=== PATIENT | female | born 1950 | race Hispanic/Latino ===

== ENCOUNTER → 2018-10-14 | Outpatient (CLI) | payer MEDICARE ==
[~2018-10-14] MED LIST: ATENOLOL100 MG PO; CEFDINIR300 MG PO; COZAAR100 MG PO; ZOLOFT100 MG
--- NOTE | 2018-10-14 15:13 | Diagnostic Imaging Report ---
Frontal and lateral views of the chest. HISTORY: Pneumonia COMPARISON: None available. DISCUSSION: Lungs: The lungs are hyperinflated. No evidence of a consolidative pneumonia or pulmonary alveolar edema. Pleura: Trace bilateral pleural effusions versus pleural thickening. Heart and mediastinum: The cardiac silhouette is unremarkable. The central pulmonary arteries appear enlarged. Bones and soft tissues: Minimal multilevel degenerative disc changes. Metallic clips in the right upper quadrant of the abdomen are compatible with prior cholecystectomy. IMPRESSION: 1. Hyperinflated lungs, correlate for obstructive lung disease. 2. Prominent pulmonary arteries, suggest associated increased pulmonary artery pressure. 3. No consolidative pneumonia. Signed by: Dr. Harish Snow D.O., M.M.M. on 10/14/2018 3:09 PM
== END ==
LOC: RAD 13:24
PROVIDERS: ATTEND Family Medicine
DX: J18.9 Pneumonia, unspecified organism (principal)
CPT/HCPCS: 71046

== ENCOUNTER 2019-03-26 16:54 | Emergency (ER) | payer MEDICARE ==
[~2019-03-26] VITALS: Ht 167.6 cm; Wt 62.6 kg
--- OUTSIDE RECORDS SUMMARY | 2019-03-26 16:57 | XMS REPORT ---
Author Author [facility] Address Unknown Phone Unavailable Care Team Providers Care Envelope Stuffer Name Role Phone BELKIS JAIN Unavailable Unavailable Problems This patient has no known problems. Allergies, Adverse Reactions, Alerts This patient has no known allergies or adverse reactions. Medications This patient has no known medications. Results Test Description Test Time Test Comments Text Results Atomic Results Result Comments CHEST 2 VIEWS 2018-10-14 15:06:00 [facility] [address] [address] Patient Name: LISBETH SMYTH MR #: [id number] : 1950 Age/Sex: 68/F Req #: [id number] Adm Physician: Ordered by: CRISTOBAL COUCH, BELKIS Reeves MD Report #: [id number] Location: RAD Room/Bed: Procedure: [id number] DX/CHEST 2 VIEWS Exam Date: 10/14/18 Exam Time: 1415 REPORT STATUS: Signed Frontal and lateral views of the chest. HISTORY: Pneum onia COMPARISON: None available. DISCUSSION: Lungs: The lungs are hyperinflated. No evidence of a consolidative pneumonia or pulmonary alveolar edema. Pleura: Trace bilateral pleural effusions versus pleural thickening. Heart and mediastinum: The cardiac silhouette is unremarkable. The central pulmonary arteries appear enlarged. Bones and soft tissues: Minimal multilevel degenerative disc changes. Metallic clips in the right upper quadrant of the abdomen are compatible with prior cholecystectomy. IMPRESSION: 1. Hyperinflated lungs, correlate for obstructive lung disease. 2. Prominent pulmonary arteries, suggest associated increased pulmonary artery pressure. 3. No consolidative pneumonia. Signed by: Dr. Joana Snow D.O., M.M.M. on 10/14/2018 3:09 PM Dictated By: JOANA SNOW DO 1509 Transcribed By: RETA on 10/14/18 1509 COPY TO: BELKIS JAIN CHEST 2 VIEWS [address] [address] Patient Name: LISBETH SMYTH MR #: [id number] : 1950 Age/Sex: 67/F Req #: [id number] Adm Physician: Ordered by: CRISTOBAL COUCH, BELKIS Reeves MD Report #: [id number] Location: [facility] Room/Bed: Procedure: [id number] DX/CHEST 2 VIEWS Exam Date: 06/21/17 Exam Time: 1454 REPORT STATUS: Signed PROCEDURE: CHEST 2 VIEWS TECHNIQUE: PA and lateral chest INDICATION: Chest pain; tightness COMPARISON: [facility], DX, CHEST 2 VIEWS, 04/24/2014, 13:47. FINDINGS: Lungs are symmetrically hyperinflated. No pleural effusions. Normal heart size mediastinal contour. Intact skeleton. CONCLUSION: Hyperinflation suggesting air trapping from COPD or asthma. Dictated by: Alejandro Tapia M.D. on 06/21/2017 at 15:20 Electronically approved by: Alejandro Tapia M.D. on 06/21/2017 at 15:20 Dictated By: ALEJANDRO TAPIA MD 1520 Transcribed By: JEFF on 06/21/17 1520 COPY TO: BELKIS JAIN
--- NOTE | 2019-03-26 17:32 | NUR ---
KARLA N.P. AT BEDSIDE IRRIGATING LEFT EAR
--- NOTE | 2019-03-26 17:40 | NUR ---
PER FAMILY, THEY STATED HER MOM HAD A BRAIN TUMOR. CT BRAIN ORDERED
--- NOTE | 2019-03-26 18:36 | Diagnostic Imaging Report ---
History: Dizziness, left ear feels clogged. Comparison studies: None Technique: Axial images were obtained from the skull base to the vertex. Coronal and sagittal reconstructions obtained from the axial data. Dose modulation, iterative reconstruction, and/or weight based adjustment of the mA/kV was utilized to reduce the radiation dose to as low as reasonably achievable. Findings: Scalp/skull: No abnormalities. No fractures, blastic or lytic lesions. Extra-axial spaces: No masses. No fluid collections. Brain sulci: Appropriate for age. Ventricles: Normal in size and configuration. No hydrocephalus. Parenchyma: Mineralization of the bilateral globi pallidi. No other abnormal densities. No masses, hemorrhage, acute or chronic cortical vascular insults. Sellar/suprasellar region: No abnormalities Craniocervical junction: Patent foramen magnum. No Chiari one malformation. IMPRESSION: No acute abnormalities . Signed by: DR Jacob Chong M.D. on 03/26/2019 6:32 PM
--- NOTE | 2019-03-26 18:41 | NUR ---
BEDSIDE REPORT TO SEJAL PEACOCK R.N.
[2019-03-26] MEDS ORDERED: CORTISPORIN-TC10 ML LEFT EAR (19:06)
[2019-03-26] MEDS ORDERED: AMOXICILLIN250 MG PO (19:06)
== END 2019-03-26 19:14 | disposition home or self-care (01) ==
LOC: ER 16:54
DX: H92.02 Otalgia, left ear (principal); H92.22 Otorrhagia, left ear; I10 Essential (primary) hypertension; E78.00 Pure hypercholesterolemia, unspecified
CPT/HCPCS: 70450; 99284